=== PATIENT | female | born 1990 ===

== ENCOUNTER 2022-03-21 15:53 | Outpatient (CLI) | payer OTHER, SELFPAY ==
--- NOTE | ~2022-03-21 | CT_ITS ---
EXAMINATION: CT IAC/mastoids BI wo con DATE: 03/21/2022 16:14 INDICATION: Pulsatile tinnitus, right ear. TECHNIQUE: Computed tomography (CT) of the temporal bones was performed without intravenous contrast. Automated exposure control and iterative reconstruction technique were employed. The dose-length pro duct was 207.28 mGy-cm. COMPARISON: None FINDINGS: RIGHT TEMPORAL BONE: The internal auditory canal, cochlea, vestibule, semicircular canals, vestibular aqueduct, carotid ca nal, jugular bulb, facial nerve course, ossicles, scutum, Prussak space, tympanic membrane, and exter nal auditory canal are normal. There is a small mastoid effusion. LEFT TEMPORAL BONE: The internal auditory canal, cochlea, vestibule, semicircular canals, vestibular aqueduct, carotid ca nal, jugular bulb, facial nerve course, ossicles, scutum, Prussak space, tympanic membrane, mastoid a ir cells, and external auditory canal are normal. IMPRESSION: 1. Small right mastoid effusion. Reviewed, dictated and finalized at location A. [facility]
== END 2022-03-21 15:54 ==
PROVIDERS: PCP Otolaryngology; Visit Provider Otolaryngology
DX: H93.A1 Pulsatile tinnitus, right ear (principal)
CPT/HCPCS: 70480